=== PATIENT | male | born 1960 | race African-American/Black ===

== ENCOUNTER 2016-06-18 09:11 | Emergency (ER) | payer BC, MEDICAID ==
[~2016-06-18] VITALS: Ht 175.3 cm; Wt 85.0 kg
[2016-06-18 09:13] VITALS: BP 169/80; PULSE 96; RESP 20; TEMP 98.5; O2SAT 99
[2016-06-18 09:48] LABS: AUTOMATED NEUTROPHIL # 6.2 TH/MM3 (1.8-7.7); BASOPHIL # 0.1 TH/MM3 (0-0.2); BASOPHIL % 0.8 % (0.0-2.0); EOSINOPHIL # 0.1 TH/MM3 (0-0.4); EOSINOPHIL % 1.4 % (0.0-4.0); HEMATOCRIT 40.1 % (39.0-51.0); HEMO FLAGS DIFF FINAL; LYMPH % 23.7 % (9.0-44.0); LYMPHOCYTE # 2.2 TH/MM3 (1.0-4.8); MEAN CELL VOLUME 86.5 FL (80.0-100.0); MEAN CORPUSCULAR HEMOGLOBIN 29.6 PG (27.0-34.0); MEAN CORPUSCULAR HGB CONC 34.2 % (32.0-36.0); MONO % 6.8 % (0.0-8.0); NEUT % 67.3 % (16.0-70.0); PLATELET COUNT 243 TH/MM3 (150-450); RED BLOOD COUNT 4.63 MIL/MM3 (4.50-5.90); RED CELL DISTRIBUTION WIDTH 13.3 % (11.6-17.2); WHITE BLOOD COUNT 9.2 TH/MM3 (4.0-11.0)
[2016-06-18 09:50] LABS: BLOOD, URINE TRACE (NEG); COMMENT (UR) CULT NOT INDICATED; CULTURE IF INDICATED CULT NOT INDICATED; GLUCOSE,URINE NEG (NEG); KETONE, URINE NEG (NEG); MUCUS URINE FEW /lpf (OCC); NITRITE,URINE NEG (NEG); PH, URINE 5.5 (5.0-8.5); SQUAMOUS EPITHELIAL CELL URINE <1 /hpf (0-5); URINE COLOR YELLOW (YELLW/STRAW)
[2016-06-18 10:09] LABS: ANION GAP 8 MEQ/L (5-15); AST (GOT) 31 U/L (15-37); BICARBONATE 27.2 MEQ/L (21.0-32.0); BLOOD UREA NITROGEN 10 MG/DL (7-18); CHLORIDE 102 MEQ/L (98-107); GLOMERULAR FILTRATION RATE 62 ML/MIN (>89); POTASSIUM 3.6 MEQ/L (3.5-5.1); SODIUM (NA) 137 MEQ/L (136-145)
[2016-06-18 10:12] LABS: ALKALINE PHOSPHATASE 110 U/L (45-117); ALT (GPT) 26 U/L (12-78)
--- NOTE | 2016-06-18 11:21 | PD ---
HPI Chief Complaint: Psychiatric Symptoms Time Seen by Provider: 10:34 Travel History International Travel<30 days: No Contact w/Intl Traveler<30days: No Traveled to known affect area: No History of Present Illness HPI Patient is a 56 year old male who comes in because he is feeling depressed. He says he has had a lot of life stresses recently and he just can't seem to get things under control. He denies any thoughts of wanting to hurt himself or anyone else. He denies any medical complaints at this time. He denies having taken any pills or drunk any alcohol. PFSH Past Medical History Medical History: Denies Significant Hx Past Surgical History Surgical History: No Previous Surgery Social History Tobacco Use: No Review of Systems Except as stated in HPI: all other systems reviewed are Neg General / Constitutional: No: Fever, Chills HENT: No: Headaches, Lightheadedness Cardiovascular: No: Chest Pain or Discomfort Respiratory: No: Shortness of Breath Gastrointestinal: No: Nausea, Abdominal Pain Musculoskeletal: No: Myalgias, Pain Skin: No Rash, No Change in Pigmentation Neurologic: No: Weakness, Dizziness Psychiatric: Positive: Depression, No: Suicidal Ideations Physical Exam Narrative GENERAL: Awake and alert, in no acute distress. SKIN: Focused skin assessment warm/dry. HEAD: Atraumatic. Normocephalic. EYES: Pupils equal and round. No scleral icterus. ENT: Mucous membranes pink and moist. NECK: Trachea midline. No JVD. CARDIOVASCULAR: Regular rate and rhythm. No murmur appreciated. RESPIRATORY: No accessory muscle use. Clear to auscultation. Breath sounds equal bilaterally. GASTROINTESTINAL: Abdomen soft, non-tender, nondistended. MUSCULOSKELETAL: No obvious deformities. No clubbing. No cyanosis. No edema. NEUROLOGICAL: Awake and alert. No obvious cranial nerve deficits. Motor grossly within normal limits. Normal speech. PSYCHIATRIC: Appropriate mood and affect; insight and judgment normal. Data Data Last Documented VS Vital Signs Date Time Temp Pulse Resp B/P Pulse Ox O2 Delivery O2 Flow Rate FiO2 06/18/16 19:07 98.4 72 18 116/64 97 Room Air Orders Complete Blood Count With Diff (06/18/16 09:15) Comprehensive Metabolic Panel (06/18/16 09:15) Urinalysis - C+S If Indicated (06/18/16 09:15) Psych Screen (06/18/16 10:34) Drug Screen, Random Urine (06/18/16 10:34) Labs Laboratory Tests Test 06/18/16 06/18/16 09:25 09:30 White Blood Count 9.2 TH/MM3 Red Blood Count 4.63 MIL/MM3 Hemoglobin 13.7 GM/DL Hematocrit 40.1 % Mean Corpuscular Volume 86.5 FL Mean Corpuscular Hemoglobin 29.6 PG Mean Corpuscular Hemoglobin 34.2 % Concent Red Cell Distribution Width 13.3 % Platelet Count 243 TH/MM3 Mean Platelet Volume 8.1 FL Neutrophils (%) (Auto) 67.3 % Lymphocytes (%) (Auto) 23.7 % Monocytes (%) (Auto) 6.8 % Eosinophils (%) (Auto) 1.4 % Basophils (%) (Auto) 0.8 % Neutrophils # (Auto) 6.2 TH/MM3 Lymphocytes # (Auto) 2.2 TH/MM3 Monocytes # (Auto) 0.6 TH/MM3 Eosinophils # (Auto) 0.1 TH/MM3 Basophils # (Auto) 0.1 TH/MM3 CBC Comment DIFF FINAL Differential Comment Sodium Level 137 MEQ/L Potassium Level 3.6 MEQ/L Chloride Level 102 MEQ/L Carbon Dioxide Level 27.2 MEQ/L Anion Gap 8 MEQ/L Blood Urea Nitrogen 10 MG/DL Creatinine 1.21 MG/DL Estimat Glomerular Filtration 62 ML/MIN Rate Random Glucose 92 MG/DL Calcium Level 9.1 MG/DL Total Bilirubin 1.0 MG/DL Aspartate Amino Transf 31 U/L (AST/SGOT) Alanine Aminotransferase 26 U/L (ALT/SGPT) Alkaline Phosphatase 110 U/L Total Protein 8.7 GM/DL Albumin 3.7 GM/DL Urine Color YELLOW Urine Turbidity CLEAR Urine pH 5.5 Urine Specific [place] 1.027 Urine Protein 30 mg/dL Urine Glucose (UA) NEG mg/dL Urine Ketones NEG mg/dL Urine Occult Blood TRACE Urine Nitrite NEG Urine Bilirubin NEG Urine Urobilinogen 2.0 MG/DL Urine Leukocyte Esterase SMALL Urine RBC 2 /hpf Urine WBC 5 /hpf Urine Squamous Epithelial <1 /hpf Cells Urine Mucus FEW /lpf Microscopic Urinalysis Comment CULT NOT INDICATED Urine Opiates Screen NEG Urine Barbiturates Screen NEG Urine Amphetamines Screen NEG Urine Benzodiazepines Screen NEG Urine Cocaine Screen POS Urine Cannabinoids Screen NEG MDM Medical Decision Making Medical Screen Exam Complete: Yes Emergency Medical Condition: Yes Differential Diagnosis depression vs electrolyte abnormalities vs psychosis Narrative Course Patient is a 56 year old male who comes in complaining of depression. He has no medical complaints at this time. Exam shows no abnormalities. Labs sent show no abnormalities. Patient will be medically cleared for psychiatric evaluation. Disposition per psychiatry. Diagnosis Primary Impression: Depression Qualified Code: F32.9 - Depression, unspecified depression type Condition: Radhika Sanon MD Jun 18, 2016 11:21
[2016-06-18 12:00] VITALS: BP 159/77; PULSE 88; RESP 18; O2SAT 99
[2016-06-18 16:16] VITALS: BP 159/83; PULSE 85; RESP 16; O2SAT 99
[2016-06-18 19:07] VITALS: BP 116/64; PULSE 72; RESP 18; TEMP 98.4; O2SAT 97
[2016-06-18 19:38] LABS: AMPHETAMINE, URINE NEG (NEG); BARBITURATES, URINE NEG (NEG); COCAINE, URINE POS (NEG)
--- NOTE | 2016-06-18 20:49 | PD ---
History of Present Illness Chief Complaint: Psychiatric Symptoms Time Seen by Provider: 20:30 Travel History International Travel<30 Days: No Contact w/Intl Traveler<30days: No Known affected area: No Legal Status Legal Status: Voluntary History of Present Illness: History of Present Illness HPI Patient is a 56 year old male with no psychiatric history and previous history of substance abuse who comes in on a voluntary basis for psychiatric evaluation because he is feeling depressed. he states " I was feeling depressed and wanted to talk to someone". He reports he has had a lot of life stresses recently including a decrease in his salary and having to travel to different parts of the country due to his work. He has been here in [place] x 2 months. He denies any significant t symptom of depression and reports that he is sleeping well and eating well. He is functioning well at his work. Denies any thoughts of wanting to hurt himself or anyone else. He denies any medical complaints at this time. He does admit to recent relapse after 14 years of sobriety. Patient reports he has had several beers as well as he has been smoking crack cocaine. EMR is reviewed. No previous visits to [facility]. Current toxicology is positive for cocaine. Patient is alert and oriented male who is casually and appropriately dressed. He is calm, engaging, cooperative with no alteration in speech pattern. No psychosis, no hai. No significant symptom of depression. he requests to have information regarding NA groups available in the area. He does not want to be admitted to the hospital and does not want to consider any medications. Psychiatric History Psychiatric History Hx Psychiatric Treatment: negative History of Inpatient Treatment: No Guns or firearms in home: No Social History Single male from [place]. has been in [place] x 2 months. he works in [employer]. Lives with 4 other males who work with him. Hx Alcohol Use: Yes Hx Tobacco Use: Yes Hx Substance Use: Yes Substance Use Type: Alcohol, Crack Hx of Substance Use Treatment: Yes Family Psychiatric History None reported Review of Systems Except as stated in HPI: all other systems reviewed are Neg Psychiatric: DENIES: Anxiety, Confusion, Mood changes, Depression, Hallucinations, Agitation, Suicidal Ideation, Homicidal Ideation, Delusions Exam Alert: Yes Snowflake: Person (ox4) Mood: Calm Affect: Appropriate Speech: Clear, Logical Eye Contact: Normal Memory Intact: Comment (no impairmetn) Hallucinations: Other (negative) Delusions: No Suicidal: Ideation (deneis any) Homicidal: Ideation (deneis any) Insight/Judgement Fair . Not impaired. MDM Medical Decision Making Medical Record Reviewed: Yes Assessment/Plan 56 year old male with no psychiatric history and hx of substance use who has had a relapse over the past few days. he has been drinking as well as smoking crack. he is requesting information regarding NA groups in area as he wants to get the help he needs. At this time the patient presents no symptomatology requiring inpatient treatment.Support and psychoeducation. referrals provided. Orders Complete Blood Count With Diff (06/18/16 09:15) Comprehensive Metabolic Panel (06/18/16 09:15) Urinalysis - C+S If Indicated (06/18/16 09:15) Psych Screen (06/18/16 10:34) Drug Screen, Random Urine (06/18/16 10:34) Results Vital Signs Date Time Temp Pulse Resp B/P Pulse Ox O2 Delivery O2 Flow Rate FiO2 06/18/16 19:07 98.4 72 18 116/64 97 Room Air 06/18/16 16:16 85 16 159/83 99 06/18/16 12:00 88 18 159/77 99 06/18/16 09:15 16 06/18/16 09:13 98.5 96 20 169/80 99 Room Air Laboratory Tests Test 06/18/16 06/18/16 09:25 09:30 White Blood Count 9.2 Red Blood Count 4.63 Hemoglobin 13.7 Hematocrit 40.1 Mean Corpuscular Volume 86.5 Mean Corpuscular Hemoglobin 29.6 Mean Corpuscular Hemoglobin 34.2 Concent Red Cell Distribution Width 13.3 Platelet Count 243 Mean Platelet Volume 8.1 Neutrophils (%) (Auto) 67.3 Lymphocytes (%) (Auto) 23.7 Monocytes (%) (Auto) 6.8 Eosinophils (%) (Auto) 1.4 Basophils (%) (Auto) 0.8 Neutrophils # (Auto) 6.2 Lymphocytes # (Auto) 2.2 Monocytes # (Auto) 0.6 Eosinophils # (Auto) 0.1 Basophils # (Auto) 0.1 CBC Comment DIFF FINAL Differential Comment Sodium Level 137 Potassium Level 3.6 Chloride Level 102 Carbon Dioxide Level 27.2 Anion Gap 8 Blood Urea Nitrogen 10 Creatinine 1.21 Estimat Glomerular Filtration 62 Rate Random Glucose 92 Calcium Level 9.1 Total Bilirubin 1.0 Aspartate Amino Transf 31 (AST/SGOT) Alanine Aminotransferase 26 (ALT/SGPT) Alkaline Phosphatase 110 Total Protein 8.7 Albumin 3.7 Urine Color YELLOW Urine Turbidity CLEAR Urine pH 5.5 Urine Specific [place] 1.027 Urine Protein 30 Urine Glucose (UA) NEG Urine Ketones NEG Urine Occult Blood TRACE Urine Nitrite NEG Urine Bilirubin NEG Urine Urobilinogen 2.0 Urine Leukocyte Esterase SMALL Urine RBC 2 Urine WBC 5 Urine Squamous Epithelial <1 Cells Urine Mucus FEW Microscopic Urinalysis Comment CULT NOT INDICATED Urine Opiates Screen NEG Urine Barbiturates Screen NEG Urine Amphetamines Screen NEG Urine Benzodiazepines Screen NEG Urine Cocaine Screen POS Urine Cannabinoids Screen NEG Diagnosis Primary Impression: Adjustment disorder Additional Impression: Substance abuse Psychiatrically Cleared: Yes Med/ Other Pt Specific Info: No Meds Exist/No RX given Disposition: 01 DISCHARGE HOME Condition: Stable Problem Qualifiers Primary Impression: Adjustment disorder Qualified Code: F43.22 - Adjustment disorder with anxious mood Chantel Cruz Jun 18, 2016 20:48
== END 2016-06-18 21:02 | disposition home or self-care (01) ==
LOC: NEPC 09:11 → NEPJ 21:02
DX: F43.20 Adjustment disorder, unspecified (principal); F19.10 Other psychoactive substance abuse, uncomplicated; F14.90 Cocaine use, unspecified, uncomplicated
CPT/HCPCS: 80053; 80307; 81001; 85025; 99284